=== PATIENT | female | born 1980 | race Two or more races ===

== ENCOUNTER 2016-12-02 07:21 | Inpatient (IN) | payer SELFPAY ==
--- NOTE | 2016-12-01 18:09 | HP ---
XIOMY SUAZO DATE OF SCHEDULED ADMISSION: December 02, 2016 PREOPERATIVE DIAGNOSIS: Large uterine fibroids. PROCEDURE PLANNED: A total abdominal hysterectomy. HISTORY: The patient is a 36-year-old 2, para 2, woman with a long history of uterine fibroids. I saw her four years ago when her uterus was 20 week size. She states that her periods are now getting heavier with some more pain and she feels like her uterus and abdomen are getting bigger. Preg. Test neg PAST MEDICAL HISTORY: Denies major medical problems. PAST SURGICAL HISTORY: Cholecystectomy. OB HISTORY: Two vaginal deliveries. ALLERGIES: NONE. CURRENT MEDICATIONS: None. FAMILY HISTORY: Is noncontributory. SOCIAL HISTORY: Patient is bilingual. Does not use tobacco or alcohol. REVIEW OF SYSTEMS: Patient denies any fever, chills, nausea, vomiting, diarrhea or constipation. PHYSICAL EXAMINATION: GENERAL: She is a healthy appearing woman. VITAL SIGNS: Are stable. She is afebrile. HEENT: Normal. LUNGS: Clear. HEART: Normal S1 and S2. ABDOMEN: Soft, uterus is palpable at 23 weeks size. PELVIC: External genitalia and vagina are normal. Cervix, no motion tenderness. Uterus is 23 weeks size, nontender. Adnexa negative. IMPRESSION: The impression is a patient with a large uterus from fibroids. She is now becoming more and more symptomatic. PLAN: Plan is to do a total abdominal hysterectomy.
[2016-12-02] MEDS ORDERED: CEFAZOLIN SODIUM 2 GRAM PREMIX 100 ML IV PRN (07:30)
[2016-12-02] MEDS ORDERED: LACTATED RINGERS 1,000 ML ONE (07:54)
[2016-12-02] MEDS ORDERED: IV START KIT ONE (07:54)
[2016-12-02] MEDS ORDERED: CEFAZOLIN SODIUM 2 GRAM PREMIX 100 ML IV ONE (07:55)
[2016-12-02] MEDS ORDERED: FENTANYL 100 MCG/2 ML VIAL ONE ×2 (08:49→08:50)
[2016-12-02] MEDS ORDERED: PROPOFOL 20 ML IV ONE ×3 (08:49→11:25)
[2016-12-02] MEDS ORDERED: MIDAZOLAM HCL 1 MG/ML 2ML VIAL ONE (08:49)
[2016-12-02] MEDS ORDERED: SPINAL PROCEDURAL TRAY 1 EACH ONE (09:42)
[2016-12-02] MEDS ORDERED: ATROPINE SULFATE 0.4 MG/1 ML VIAL IV PRN (10:10)
[2016-12-02] MEDS ORDERED: ONDANSETRON 4 MG/2ML 2 ML VIAL IV PRN (10:10)
[2016-12-02] MEDS ORDERED: HYDROMORPHONE HCL 1 MG/ML SYRINGE IV PRN (10:10)
[2016-12-02] MEDS ORDERED: LABETALOL HCL 5 MG/ML 20ML VIAL IV PRN (10:10)
[2016-12-02] MEDS ORDERED: NALOXONE HCL 0.4 MG/ML VIAL IV PRN (10:10)
[2016-12-02] MEDS ORDERED: HYDRALAZINE HCL 20 MG/1 ML VIAL IV PRN (10:10)
[2016-12-02] MEDS ORDERED: FENTANYL 100 MCG/2 ML VIAL IV PRN (10:10)
[2016-12-02] MEDS ORDERED: MEPERIDINE 25 MG/ML SYRINGE IV PRN (10:10)
[2016-12-02] MEDS ORDERED: PROMETHAZINE HCL 25 MG/ML VIAL IM PRN (10:10)
[2016-12-02] MEDS ORDERED: LACTATED RINGERS 1,000 ML IV SCH (10:15)
[2016-12-02] MEDS ORDERED: DIPHENHYDRAMINE HCL 50 MG/1 ML VIAL ONE (10:36)
[2016-12-02] MEDS ORDERED: [UNRECOGNIZED DRUG - OTHER] IV SCH (11:45)
[2016-12-02] MEDS ORDERED: KETOROLAC TROMETHAMINE 30 MG/ML 1 ML VIAL ONE (11:48)
[2016-12-02] MEDS ORDERED: KETOROLAC TROMETHAMINE 30 MG/ML 1 ML VIAL IV ONE (11:49)
[2016-12-02] MEDS ORDERED: HYDROMORPHONE HCL 1 MG/ML SYRINGE ONE (12:13)
[2016-12-02] MEDS ORDERED: DOCUSATE SODIUM 100 MG CAPSULE PO PRN (12:35)
[2016-12-02] MEDS ORDERED: ACETAMINOPHEN 325 MG TABLET PO PRN (12:35)
[2016-12-02] MEDS ORDERED: MAGNESIUM HYDROXIDE/AL HYDROX 30 ML UDCUP PO PRN (12:35)
[2016-12-02] MEDS ORDERED: BLISTEX LIPSTICK 1 EACH TP PRN (12:35)
[2016-12-02] MEDS ORDERED: MENTHOL/CETYLPYRD 1 EACH LOZENGE PO PRN (12:35)
[2016-12-02] MEDS ORDERED: DIPHENHYDRAMINE HCL 50 MG/1 ML VIAL IV PRN (12:35)
[2016-12-02] MEDS ORDERED: KETOROLAC TROMETHAMINE 30 MG/ML 1 ML VIAL IV SCH (12:35)
[2016-12-02] MEDS ORDERED: MAG HYDROX/AL HYDROX/SIMETH 30 ML UDCUP PO PRN (12:35)
--- NOTE | 2016-12-02 13:14 | OP ---
Neelam Bryant DATE OF SURGERY: 12/02/2016 PREOPERATIVE DIAGNOSIS: Enlarged uterus. POSTOPERATIVE DIAGNOSIS: Bilateral ovarian masses. PROCEDURE PERFORMED: Total abdominal hysterectomy and bilateral salpingo-oophorectomy. DESCRIPTION OF PROCEDURE: The patient was taken to the operating room with spinal anesthesia in place. She was placed in supine position, prepped and draped in the usual sterile fashion. A midline incision was made with scalpel through her previous incision from her pubic bone to the umbilicus. A second scalpel was used to reach the fascia. Fascial incision was made with Lawson scissors. The peritoneum was entered with Metzenbaum's and extended. Examination showed that her uterus had scar tissue around it, but was slightly enlarged, but fairly normal size. The right ovary though was about 8 cm multicystic mass smooth on the outside, no adhesions. The left ovary was a 15 cm multicystic smooth mass. The right mass was brought through the incision and the pedicles clamped, cut, and ligated with 0 Vicryl. The left ovary was brought through and its pedicle clamped, cut, and ligated with 0 Vicryl. The self retaining retractor was then inserted and bowel was placed with laparotomy packs. The sides of the uterus were grasped with Medina's and the round ligaments bilaterally, clamped, cut, and ligated with 0 Vicryl. Anterior leaf the broad ligament was then opened and the bladder pushed downwards. There were multiple adhesions around the bladder to the lower segment, these were taken down by sharp and blunt dissection getting the bladder completely freed of the incision site. An avascular window was created in the posterior leaf of the broad ligament on the left side and the tube and remaining adnexa were clamped, cut, and ligated with 0 Vicryl. An avascular window was created in the posterior leaf of the broad ligament on the right side and the tube and remaining adnexa were clamped, cut, and ligated with 0 Vicryl. The uterine vessels were bilaterally skeletonized and clamped, cut, and ligated with 0 Vicryl. Progressive bites of tissue were taken on each side of the cervix with each bite of tissue being clamped, cut, and ligated with 0 Vicryl. The vagina was entered with a scalpel just beneath the cervix and the cervix and uterus was removed with scissors removing it from the body. Two angles of the vagina were closed with modified Reyez suture technique of 0 Vicryl. The cuff was then run with a running locking suture of 0 Vicryl. There were a few small oozing areas around the anterior cuff which were cauterized. Irrigation was performed and hemostasis was good. A piece of Surgicel was placed over the raw area above the cuff and the pelvic floor was reperitonealized with a running suture of 2-0 Vicryl. Irrigation was again performed and hemostasis was good. All instruments and laparotomy packs were removed. The anterior peritoneum closed with a running suture of 2-0 Vicryl. The fascia was closed with figure of eights of 0 Vicryl. Some deep sutures of 3-0 Plain were placed to bring the subcutaneous tissue back together and the skin was closed with lauri. The patient tolerated the procedure well and was taken to recovery room in stable condition. All sponge, instrument, and needle counts were correct. Estimated blood loss 100 mL. JOB: [id number]
[2016-12-02] MEDS ORDERED: HYDROMORPHONE HCL 0.5 MG/0.5 ML SYRINGE IV PRN (13:24)
[2016-12-02] MEDS ORDERED: PUMP TUBING ONE (14:26)
[2016-12-02] MEDS: D5LR 1,000 ML IV SCH ×2 (14:31→22:02)
[2016-12-02] MEDS: ONDANSETRON 4 MG/2ML 2 ML VIAL IV PRN ×2 (14:31→18:21)
[2016-12-02 14:48] VITALS: BMI 27.7
[2016-12-02] MEDS: HYDROMORPHONE HCL 1 MG/ML SYRINGE IV PRN ×3 (14:51→19:42)
[2016-12-02] MEDS: KETOROLAC TROMETHAMINE 30 MG/ML 1 ML VIAL IV SCH ×2 (18:04→23:01)
[2016-12-03] MEDS: OXYCODONE/ACETAMINOPHEN 5/325 MG TABLET PO PRN ×5 (00:01→21:42)
[2016-12-03] MEDS: HYDROMORPHONE HCL 1 MG/ML SYRINGE IV PRN (02:16)
[2016-12-03] MEDS: KETOROLAC TROMETHAMINE 30 MG/ML 1 ML VIAL IV SCH ×3 (05:01→17:37)
[2016-12-03] MEDS: D5LR 1,000 ML IV SCH ×2 (05:45→13:55)
[2016-12-03 06:47] LABS: HEMATOCRIT 30.9 % (37.0-47.0); HEMOGLOBIN 10.1 gm/l (12.0-16.0); MEAN CELL VOLUME 92.8 fl (81.0-99.0); MEAN CORPUSCULAR HEMOGLOBIN 30.3 pg (27.0-31.0); MEAN CORPUSCULAR HGB CONC 32.7 g/dl (33.0-37.0); RED CELL DISTRIBUTION WIDTH 13.1 % (11.5-14.5)
--- NOTE | 2016-12-03 08:58 | PDOC43 ---
- Subjective Subjective: Reports Pain Tolerable, Reports Tolerating PO Clear - Objective Vital Signs Temperature 98.2 F 12/03/16 07:21 Pulse Rate 70 12/03/16 07:21 Respiratory Rate 17 12/03/16 07:21 Blood Pressure 122/70 12/03/16 07:21 O2 Saturation by Pulse Oximetry 91 12/03/16 07:21 Oxygen Delivery Method Room Air Oxygen Flow Rate 0 Laboratory 12/03/16 06:00 12/03/16 06:00 RBC 3.33 L MCHC 32.7 L Active Medication Orders Category Date Time Status Acetaminophen [Tylenol] Med 12/02/16 12:35 Active 325 - 650 mg PO Q4H PRN D5lr 1,000 ml Med 12/02/16 12:35 Active IV 125 mls/hr Diphenhydramine HCl [Benadryl] Med 12/02/16 12:35 Active 25 mg IV Q6H PRN Docusate Sodium [Colace] Med 12/02/16 12:35 Active 100 mg PO BID PRN Hydromorphone HCl [Dilaudid] Med 12/02/16 13:24 Active 0.5 - 1 mg IV Q1H PRN Hydromorphone HCl [Dilaudid] Med 12/02/16 13:28 Active 0.5 - 1 mg IV Q1H PRN Ketorolac Tromethamine [Toradol] Med 12/02/16 18:00 Active 30 mg IV Q6H Lip [place] [Blistex] Med 12/02/16 12:35 Active 1 each TP PRN PRN Magnesium Hydroxide/Al Hydrox [Maalox] Med 12/02/16 12:35 Active 30 ml PO Q4H PRN Magnesium/Al Hydrox/Simeth [Maalox Plus] Med 12/02/16 12:35 Active 30 ml PO Q4H PRN Menthol/Cetylpyridinium [Cepacol] Med 12/02/16 12:35 Active 1 each PO PRN PRN Ondansetron 4 mg/2ml Vial [Zofran] Med 12/02/16 12:35 Active 4 mg IV Q4H PRN Oxycodone HCl/Acetaminophen [Percocet 5/325] Med 12/02/16 12:35 Active 1 - 2 tab PO Q4H PRN Sodium Chloride 0.9% Flush [Normal Saline 10ml Flush] Med 12/02/16 12:35 Active 10 - 50 ml IV PRN PRN Sodium Chloride 0.9% Flush [Normal Saline 10ml Flush] Med 12/02/16 17:00 Active 10 ml IV Q8HR Intake and Output 12/01/16 12/02/16 12/03/16 23:59 23:59 23:59 Intake Total 2589 3429 Output Total 630 2300 Balance 1959 1129 General: Afebrile Abdomen: Soft Wound ER MANAGER: Dressing Clean/Dry/Intact Genitourinary: Normal Female Genitalia Psych/Mental Status: Normal Affect - Disposition: Disposition: Stable
[2016-12-03] MEDS ORDERED: IBUPROFEN 800 MG TABLET PO PRN (23:45)
[2016-12-04] MEDS: OXYCODONE/ACETAMINOPHEN 5/325 MG TABLET PO PRN ×2 (04:58→10:31)
[2016-12-04 08:21] VITALS: BP 107/58
--- NOTE | 2016-12-04 11:06 | PDOC43 ---
- Subjective Subjective: Reports Pain Tolerable, Reports Tolerating PO Regular - Objective Vital Signs Temperature 98 F 12/04/16 07:10 Pulse Rate 67 12/04/16 07:10 Respiratory Rate 16 12/04/16 07:10 Blood Pressure 107/58 12/04/16 07:10 O2 Saturation by Pulse Oximetry 99 12/04/16 07:10 Oxygen Delivery Method Room Air Oxygen Flow Rate 0 Laboratory 12/03/16 06:00 Active Medication Orders Category Date Time Status Acetaminophen [Tylenol] Med 12/02/16 12:35 Active 325 - 650 mg PO Q4H PRN Docusate Sodium [Colace] Med 12/02/16 12:35 Active 100 mg PO BID PRN Hydromorphone HCl [Dilaudid] Med 12/02/16 13:24 Active 0.5 - 1 mg IV Q1H PRN Hydromorphone HCl [Dilaudid] Med 12/02/16 13:28 Active 0.5 - 1 mg IV Q1H PRN Ibuprofen [Motrin] Med 12/03/16 23:45 Active 800 mg PO Q6H PRN Lip [place] [Blistex] Med 12/02/16 12:35 Active 1 each TP PRN PRN Magnesium Hydroxide/Al Hydrox [Maalox] Med 12/02/16 12:35 Active 30 ml PO Q4H PRN Magnesium/Al Hydrox/Simeth [Maalox Plus] Med 12/02/16 12:35 Active 30 ml PO Q4H PRN Menthol/Cetylpyridinium [Cepacol] Med 12/02/16 12:35 Active 1 each PO PRN PRN Oxycodone HCl/Acetaminophen [Percocet 5/325] Med 12/02/16 12:35 Active 1 - 2 tab PO Q4H PRN Sodium Chloride 0.9% Flush [Normal Saline 10ml Flush] Med 12/02/16 17:00 Active 10 ml IV Q8HR Intake and Output 12/02/16 12/03/16 12/04/16 23:59 23:59 23:59 Intake Total 6219 7821 2160 Output Total 630 4100 800 Balance 1959 3721 1360 General: Afebrile Abdomen: Soft Wound SKATE HOP: Well Approximated, [place] Intact Genitourinary: Normal Female Genitalia Psych/Mental Status: Normal Affect - Disposition: Disposition: Anticipate Home Today
--- NOTE | 2016-12-04 13:48 | SURGPATH ---
[facility] [address] [place] [id number] Patient Name: XIOMY SUAZO MR#: [id number] : 1980 Gender: F Specimen #: [id number] Collected: 12/02/2016 Received: 12/03/2016 Reported: 12/04/2016 Submitting Phys: TRACEE INIGUEZ Copy To Phys: [facility] Clinical History / Pre-Operative Diagnosis: Ovarian masses Specimen Source / Surgical Procedure Performed: #1 uterus and cervix, #2 left ovary, #3 right ovary Interpretation: 1. UTERUS AND CERVIX, HYSTERECTOMY: - ADENOMYOSIS - BENIGN SECRETORY ENDOMETRIUM - CERVIX WITH NO DIAGNOSTIC ABNORMALITY 2. LEFT OVARY, OOPHORECTOMY: - MATURE CYSTIC TERATOMA 3. RIGHT OVARY, OOPHORECTOMY: - MATURE CYSTIC TERATOMA Electronically Signed Out Cassy Diehl M.D. Gross Description: 1. The specimen is received in formalin labeled with the patient's name and "uterus and cervix". The specimen consists of a 9.0 x 7.0 x 4.0 cm, 106 g uterus with attached cervix. The 2 cm cervix has a patent os the soft glistening rene endometrium is 0.3 cm. The myometrium is rubbery and slightly trabecular. There is an anterior lower uterine segment probable section scar. Group Sales Representative tissue is submitted. 1A posterior cervix 1B anterior cervix and lower uterine segment 1C partial thickness anterior uterus x2 1D-1E full thickness posterior uterus 2. The specimen is received in formalin labeled with the patient's name and "left ovary". The specimen consists of a 618 g, 13 x 12 x 9 cm intact ovarian mass. The outer surface is rene and smooth with an attached 4.0 x 0.3 x 0.3 cm #8 of fallopian tube. Sectioning reveals a biloculated cyst (up to 13 cm). The cysts contain yellow greasy grumous fatty material and hair. The cyst lining is primarily smooth and the wall thin. The specimen is consistent with a dermoid cyst without identifiable suspicious areas. 2A-E. veterans employment representative 3. The specimen is received in formalin labeled with the patient's name and "right ovary". The specimen consists of a 7.5 x 7.0 x 4.5 cm, 141 g intact ovarian mass. The outer surface is rene and smooth with an attached 5.0 x 0.5 x 0.5 cm fimbriated fallopian tube. Sectioning reveals a multicystic cut surface. The cysts are up to 4 cm and contain translucent-cloudy serous to slightly mucinous fluid or clotted blood. The cysts lining are smooth and the ferrell thin. Excrescences or suspicious areas are not identified. There are also corpus luteal cysts. 3A-E. veterans employment representative LAURA Cabrera Microscopic Description: 1. Sections from the cervix are free of dysplasia. There is early secretory endometrium without hyperplasia or neoplasia. No plasma cells are seen within the stroma. [place] of benign endometrial glands and stroma are seen within the myometrium, representing adenomyosis. 2. Sections from the ovary show a mature cystic teratoma with immature dermal components including sebaceous glands, hair follicles, and fat. No immature elements are identified and there are no malignant tissue types. 3. Sections from the ovary show a multicystic lesion with enteric type epithelium area the epithelium has bland cytologic features and there is no stromal invasion. No epidermal type tissues are present and there are no other tissue types. The fallopian tube is unremarkable. 1: [id number] 2: 57877 3: 00995 D27.0 D27.1
--- NOTE | 2016-12-07 13:44 | DS ---
Neelam Bryant DATE OF ADMISSION: 12/02/2016 DATE OF DISCHARGE: 12/04/2016 ADMITTING DIAGNOSIS: Large pelvic masses. DISCHARGE DIAGNOSIS: Bilateral teratoma's. PROCEDURE PERFORMED: Total abdominal hysterectomy and bilateral salpingo-oophorectomy. HISTORY: The patient is a 36-year-old 2, para 2-0-0-1 with an long history of uterine fibroids. She was seen four years ago and her uterus was 20 weeks size. She states that her periods are now getting heavier with more pain and she feels her uterus and abdomen are getting bigger. test was negative. The patient was admitted and taken to the operating room where she underwent a RAMESH-BSO. It was noted that her uterus was probably 10 weeks size, but both ovaries were enlarged one at about 8 cm and the other about 15 cm with smooth glistening multi cysts. The pathology was returned as bilateral benign teratoma's. Postoperatively the patient did well. She remained afebrile, ambulating well, and tolerating her diet. On the second postoperative day she wanted to go home. She was discharged home. She will return to see me in three days to have her lauri removed. She was given a prescription for Percocet and for Colace. JOB: [id number]
== END 2016-12-04 11:15 | disposition home or self-care (01) | DRG 743 ==
LOC: OR 07:21 → MERGE 07:21 → MS 13:03
PROVIDERS: ADMIT Obstetrics & Gynecology; ATTEND Obstetrics & Gynecology
PROC: 0UT94ZZ Resection of Uterus, Percutaneous Endoscopic Approach (ICD-10-PCS; principal; 2016-12-02)
PROC: 0UTC4ZZ Resection of Cervix, Percutaneous Endoscopic Approach (ICD-10-PCS; 2016-12-02)
PROC: 0UT70ZZ Resection of Bilateral Fallopian Tubes, Open Approach (ICD-10-PCS; 2016-12-02)
PROC: 0UT20ZZ Resection of Bilateral Ovaries, Open Approach (ICD-10-PCS; 2016-12-02)
DX: D25.9 Leiomyoma of uterus, unspecified (principal)